=== PATIENT | female | born 1995 ===

== ENCOUNTER 2017-10-24 21:53 | Emergency (ER) | payer MEDICAID ==
[2017-10-24] MEDS ORDERED: Albuterol-Ipratrop 3 mg / 0.5 (3 ml) UD ONE (22:13)
[2017-10-24] MEDS ORDERED: Albuterol-Ipratrop 3 mg / 0.5 (3 ml) UD IH STA (22:22)
--- NOTE | 2017-10-24 22:45 | C.PDOC ---
Time Seen by Provider: 10/24/17 22:13 Chief Complaint (Nursing): Shortness Of Breath History Per: Patient Onset/Duration Of Symptoms: Days (1) Current Symptoms Are (Timing): Still Present Preciptating Factors: URI Severity: Moderate Additional History Per: Prior Records - Asthma History Medication Use: PRN Rescue Medications: Short-acting Agonists, See Home Medication List Control Medications: None Past Medical History Reviewed: Historical Data, Nursing Documentation, Vital Signs Vital Signs: Last Vital Signs Temp 97.3 F L 10/24/17 22:03 Pulse 98 H 10/24/17 22:03 Resp 17 10/24/17 22:25 BP 123/81 10/24/17 22:03 Pulse Ox 100 10/24/17 22:25 - Medical History PMH: Asthma Surgical History: No Surg Hx Family History: States: Unknown Family Hx - Social History Hx Tobacco Use: No Hx Alcohol Use: No Hx Substance Use: Yes (MARIJUANA) - Immunization History Hx Tetanus Toxoid Vaccination: No Hx Influenza Vaccination: No Hx Pneumococcal Vaccination: No Review Of Systems Except As Marked, All Systems Reviewed And Found Negative. Constitutional: Negative for: Fever ENT: Positive for: Nose Congestion. Negative for: Ear Pain, Throat Pain Cardiovascular: Negative for: Chest Pain Respiratory: Positive for: Cough, Wheezing. Negative for: Hemoptysis, Sputum Gastrointestinal: Negative for: Vomiting, Abdominal Pain Musculoskeletal: Negative for: Neck Pain, Back Pain, Leg Pain Skin: Negative for: Rash Neurological: Negative for: Weakness, Numbness Physical Exam - Physical Exam Appears: Non-toxic, No Acute Distress Skin: Normal Color, Warm, Dry, No Rash Head: Atraumatic, Normacephalic Eye(s): bilateral: Normal Inspection, PERRL, EOMI Throat: Normal Neck: Normal ROM, Supple Lymphatic: No Adenopathy Cardiovascular: Rhythm Regular Respiratory: No Accessory Muscle Use, Wheezing (mild intermittent) Gastrointestinal/Abdominal: Soft, No Tenderness Back: No CVA Tenderness Extremity: Normal ROM, No Pedal Edema, No Calf Tenderness Neurological/Psych: Oriented x3, Normal Speech, Normal Motor, Normal Sensation ED Course And Treatment O2 Sat by Pulse Oximetry: 100 Pulse Ox Interpretation: Normal Reassessment Condition: Improved Disposition Counseled Patient/Family Regarding: Diagnosis, Need For Followup, Rx Given - Disposition Disposition: HOME/ ROUTINE Disposition Time: 22:45 Condition: IMPROVED Additional Instructions: Use your Albuterol pump as needed. Follow up with your doctor. Return to the ER if you develop shortness of breath, high fever, chest pain, worsening of symptoms or if you have any other concerns. Prescriptions: predniSONE [predniSONE Tab] 2 tab PO DAILY #8 tab Instructions: Asthma, Adult (DC) Forms: [facility] ([place]) - Clinical Impression Clinical Impression: Asthma exacerbation
[2017-10-24 23:05] VITALS: BP 106/62; PULSE 85; RESP 20; TEMP 98.1; O2SAT 99
== END 2017-10-24 23:22 | disposition home or self-care (01) ==
LOC: C.ER 21:53
DX: J45.901 Unspecified asthma with (acute) exacerbation (principal)

== ENCOUNTER 2017-11-30 14:27 | Emergency (ER) | payer MEDICAID ==
[2017-11-30 14:37] VITALS: O2SAT 99
[2017-11-30 15:23] LABS: SQUAMOUS EPITHIAL 6 /hpf (0-5); URINE AMORPHOUS SEDIMENT FEW /ul (<OCC); URINE BILIRUBIN NEGATIVE (NEGATIVE); URINE BLOOD NEGATIVE (NEGATIVE); URINE CLARITY Hazy (Clear); URINE COLOR Yellow (YELLOW); URINE GLUCOSE (UA) NORMAL (Normal); URINE LEUKOCYTE ESTERASE TRACE Leu/uL (Negative); URINE PROTEIN NEGATIVE (NEGATIVE); URINE UROBILINOGEN NORMAL mg/dL (0.2-1.0)
--- NOTE | 2017-11-30 16:51 | C.PDOC ---
History Of Present Illness 22 year old female presents to the ED for evaluation of dizziness, lightheadedness and headache. Patient also reports she losing partial sight in her eye. She notes she saw black spots in the temporal side of her left eye. Patient underwent head injury in February; she was told that she had "two concussions" at the time and a laceration which required 22 stitches. Patient denies nausea, vomiting. Patient has PMHx of asthma and anemia (heavy period) patient does not have surgical history. Patient's allergies include: shrimp, banana, cough medicine; she reportedly experiences andgioedema. Social: patient admits to smoking 3-5 cigarettes for the past 5 years. Denies alcohol use. Time Seen by Provider: 11/30/17 14:42 Chief Complaint (Nursing): Dizziness/Lightheaded History Per: Patient History/Exam Limitations: no limitations Onset/Duration Of Symptoms: Days Current Symptoms Are (Timing): Still Present Additional History Per: Patient Past Medical History Reviewed: Historical Data, Nursing Documentation, Vital Signs Vital Signs: Last Vital Signs Temp 98 F 11/30/17 20:10 Pulse 88 11/30/17 20:10 Resp 20 11/30/17 20:10 BP 155/90 H 11/30/17 20:10 Pulse Ox 99 11/30/17 21:21 - Medical History PMH: Anemia, Asthma Denies: Chronic Kidney Disease Surgical History: No Surg Hx Family History: States: Unknown Family Hx - Social History Hx Tobacco Use: No Hx Alcohol Use: No Hx Substance Use: No - Immunization History Hx Tetanus Toxoid Vaccination: No Hx Influenza Vaccination: No Hx Pneumococcal Vaccination: No Review Of Systems Constitutional: Negative for: Fever, Chills, Sweats Eyes: Positive for: Vision Change, Redness (mild injection of left eye sclera ) . Negative for: Pain, Conjunctivae Inflammation, Eyelid Inflammation ENT: Negative for: Ear Pain, Ear Discharge, Nose Pain, Nose Congestion, Mouth Pain, Mouth Swelling Cardiovascular: Negative for: Chest Pain, Palpitations, Orthopnea Respiratory: Negative for: Cough, Shortness of Breath, Hemoptysis, SOB with Excertion, Pleuritic Pain, Sputum Gastrointestinal: Negative for: Nausea, Vomiting, Abdominal Pain, Diarrhea, Constipation, Melena Genitourinary: Negative for: Dysuria, Frequency, Hematuria Musculoskeletal: Negative for: Neck Pain, Shoulder Pain, Arm Pain Skin: Negative for: Rash Neurological: Positive for: Headache, Other (lightheadedness ). Negative for: Weakness, Numbness, Incoordination Psych: Negative for: Anxiety, Depression Physical Exam - Physical Exam Appears: Non-toxic, No Acute Distress Skin: Normal Color, Warm, Dry Head: Atraumatic, Normacephalic Eye(s): bilateral: Normal Inspection, PERRL, EOMI, Other (visual acuity 20/50. visual rodgers intact. sclera negative ) Ear(s): Bilateral: Normal Nose: Normal Oral Mucosa: Moist Tongue: Normal Appearing Lips: Normal Appearing Teeth: Normal Dentition Gingiva: Normal Appearing Throat: Normal Neck: Normal, Normal ROM, Supple Chest: Symmetrical, No Deformity, No Tenderness Cardiovascular: Rhythm Regular, No Murmur Respiratory: Normal Breath Sounds, No Rales, No Rhonchi, No Wheezing Gastrointestinal/Abdominal: Normal Exam, Bowel Sounds Back: Normal Inspection Extremity: Normal ROM, Capillary Refill (less than 2 seconds ) Extremity: Bilateral: No Pedal Edema, Normal Color And Temperature, Normal ROM Neurological/Psych: Oriented x3, Normal Speech, Normal Cognition ED Course And Treatment - Laboratory Results Result Diagrams: 11/30/17 17:06 11/30/17 17:06 O2 Sat by Pulse Oximetry: 99 (on RA) Pulse Ox Interpretation: Normal - CT Scan/US CT Head Other Rad Studies (CT/US): Read By Radiologist, Radiology Report Reviewed CT/US Interpretation: PROCEDURE: CT HEAD WITHOUT CONTRAST. HISTORY: loss of site left eye/ partial. COMPARISON: None available. TECHNIQUE: Axial computed tomography images were obtained through the head/brain without intravenous contrast. Radiation dose: Total exam DLP = 697.9 mGy-cm. This CT exam was performed using one or more of the following dose reduction techniques : Automated exposure control, adjustment of the mA and/or kV according to patient size, and/or use of iterative reconstruction technique. FINDINGS: HEMORRHAGE: No intracranial hemorrhage. BRAIN: No mass effect or edema. No atrophy or chronic microvascular ischemic changes. VENTRICLES: Unremarkable. No hydrocephalus. CALVARIUM: Unremarkable. PARANASAL SINUSES: Unremarkable as visualized. No significant inflammatory changes. MASTOID AIR CELLS: Unremarkable as visualized. No inflammatory changes. OTHER FINDINGS: None. IMPRESSION: No acute intracranial pathology. Medical Decision Making Medical Decision Making: Progress: Bloodwork, urinalysis, CT Head ordered and reviewed. Lactated Ringers IVP given. CBC and chemistry are unremarkable. urine is negative. CT head is negative. bedside ultrasound does not reveal retinal detachment. Patient's visual acuity is 20/50 bilaterally without corrective lenses. Unable to use slit lamp, because it is not working. visual rodgers in tact. Patient became very frustrated due to wait time. [facility] Patient states the hospital is too far and she does not know how to get a ride back home. Patient refused further care and asked to leave. Patient is informed that her vision is the same in both eyes. She is given a copy of her lab and CT Head results. Patient will be diagnosed with a posterior vitreous detachment. Patient is advised to follow up with drafter tool design and neurologist within 48 hours for further evaluation. Advised to return to the ED if symptoms persist or worsen. most likely pt has a posterior vitreous detachment - needs ophtho exam within 48 hours- pt was counseled to do this. Disposition Counseled Patient/Family Regarding: Diagnosis, Need For Followup - Disposition Referrals: Delmy Julian MD [Staff Provider] - Bebeto Graff [Staff Provider] - Disposition: TRANSF TO SNF Disposition Time: 22:38 Condition: GOOD Additional Instructions: return if symtpoms worsen Forms: [facility] (Romanian) - Clinical Impression Clinical Impression: Vision decreased
[2017-11-30] MEDS ORDERED: Lactated Ringer's 1,000 ML IV STA (16:52)
[2017-11-30 17:10] LABS: BASO # 0.1 K/uL (0.0-0.2); BASO % 0.7 % (0.0-2.0); EOS # 0.5 K/uL (0.0-0.7); EOS % 5.2 % (0.0-4.0); HEMOGLOBIN 12.1 g/dL (11.0-16.0); LYMPH # 3.6 K/uL (1.0-4.3); LYMPH % 34.5 % (20.0-40.0); MEAN CORPUSCULAR HEMOGLOBIN 28.6 pg (27.0-31.0); MEAN CORPUSCULAR HGB CONC 33.3 g/dL (33.0-37.0); MEAN PLATELET VOLUME 6.7 fL (7.2-11.7); MONO # 0.4 K/uL (0.0-0.8); MONO % 3.8 % (0.0-10.0); NEUT # 5.9 K/uL (1.8-7.0); NEUT % 55.8 % (50.0-75.0); NRBC % 0.1 % (0.0-2.0); RBC 4.22 Mil/uL (3.80-5.20); WHITE BLOOD COUNT 10.5 K/uL (4.8-10.8)
[2017-11-30 17:23] LABS: ALB/GLOB RATIO 1.6 (1.0-2.1); ALBUMIN 4.1 g/dL (3.5-5.0); ALT/SGPT 30 U/L (9-52); AST/SGOT 18 U/L (14-36); BLOOD UREA NITROGEN 12 mg/dL (7-17); CALCIUM 9.4 mg/dl (8.6-10.4); GFR AFRICAN-AMERICAN > 60; GFR NON-AFRICAN AMERICAN > 60
[2017-11-30] MEDS ORDERED: Lactated Ringer's 1,000 ML ONE (17:28)
--- NOTE | 2017-11-30 17:38 | CT ---
Date of service: 11/30/2017 PROCEDURE: CT HEAD WITHOUT CONTRAST. HISTORY: loss of site left eye/ partial COMPARISON: None available. TECHNIQUE: Axial computed tomography images were obtained through the head/brain without intravenous contrast. Radiation dose: Total exam DLP = 697.9 mGy-cm. This CT exam was performed using one or more of the following dose reduction techniques: Automated exposure control, adjustment of the mA and/or kV according to patient size, and/or use of iterative reconstruction technique. FINDINGS: HEMORRHAGE: No intracranial hemorrhage. BRAIN: No mass effect or edema. No atrophy or chronic microvascular ischemic changes. VENTRICLES: Unremarkable. No hydrocephalus. CALVARIUM: Unremarkable. PARANASAL SINUSES: Unremarkable as visualized. No significant inflammatory changes. MASTOID AIR CELLS: Unremarkable as visualized. No inflammatory changes. OTHER FINDINGS: None. IMPRESSION: No acute intracranial pathology.
[2017-11-30 20:40] VITALS: BP 155/90; PULSE 88; RESP 20; TEMP 98
== END 2017-11-30 20:15 | disposition left against medical advice (07) ==
LOC: C.ER 14:27
DX: H43.812 Vitreous degeneration, left eye (principal)
CPT/HCPCS: 70450; 80053; 81001; 85025; 85651; 96361; 96374; 99285; J2765; J7120